=== PATIENT | male | born 1975 | race Caucasian/White ===

== ENCOUNTER 2018-12-09 14:47 | Emergency (ER) | payer MEDICAID ==
[2018-12-09] MEDS ORDERED: ULTRAM50 MG PO (14:52)
[2018-12-09 15:04] LABS: APPEARANCE CLEAR (CLEAR); BILIRUBIN NEGATIVE (NEGATIVE); COLOR YELLOW (YELLOW); GLUCOSE NEGATIVE (NEGATIVE); KETONE NEGATIVE (NEGATIVE); NITRITE NEGATIVE (NEGATIVE); PROTEIN NEGATIVE (NEGATIVE); SPECIFIC GRAVITY 1.015 (1.005-1.020); UROBILINOGEN NORMAL (NORMAL)
[2018-12-09 15:07] LABS: BASOPHILS 0.3 % (0-2); EOSINOPHILS 1.9 % (0-7); HEMATOCRIT 46.1 % (42.0-54.0); HEMOGLOBIN 15.9 g/dL (13.5-17.5); IMMATURE GRANULOCYTES 0.5 % (0-5); MCH 30.5 pg (26.0-34.0); MCHC 34.5 g/dL (31.0-37.0); MCV 88.5 fL (80.0-100.0); MEAN PLATELET VOLUME 9.7 fL (7.4-10.4); NEUTROPHILS 53.3 % (40-80); PLATELET COUNT 225 10x3/uL (130-400); RBC 5.21 10x6/uL (4.20-6.10); RDW 12.9 % (11.5-14.5); WBC 15.2 10x3/uL (4.8-10.8)
[2018-12-09 15:27] LABS: ANION GAP 15.7 mmol/L (8-16); BILIRUBIN - TOTAL 0.43 mg/dL (0.2-1.3); CALCIUM 9.2 mg/dL (8.5-10.1); CREATININE - SERUM 1.3 mg/dL (0.6-1.3); POTASSIUM - SERUM 3.7 mmol/L (3.5-5.1); PROTEIN - SERUM 7.6 g/dL (6.4-8.2)
[2018-12-09 15:43] VITALS: BP 129/75
== END 2018-12-09 15:45 | disposition other institution (70) ==
LOC: D.ER 14:47
PROVIDERS: Family Medicine
DX: R10.9 Unspecified abdominal pain (principal); G89.18 Other acute postprocedural pain; N44.00 Torsion of testis, unspecified

== ENCOUNTER 2019-10-08 13:31 | Emergency (ER) | payer MEDICAID ==
[~2019-10-08] VITALS: Ht 193 cm; Wt 106.8 kg
[2019-10-08 13:39] VITALS: BP 117/88; Ht 193 cm; Wt 106.8 kg
== END 2019-10-08 15:10 | disposition home or self-care (01) ==
LOC: D.ER 13:31
DX: Z76.5 Malingerer [conscious simulation] (principal); K59.00 Constipation, unspecified